=== PATIENT | female | born 1965 | race Caucasian/White ===

== ENCOUNTER 2018-06-07 12:03 | Day surgery (SDC) | payer BC ==
[2018-06-07] MEDS ORDERED: Ropivacaine 0.5% 5 MG/ML 30 ML SDV ONE (15:25)
[2018-06-07] MEDS ORDERED: Betamethasone Acetate/Betamethasone Sod Phosphate 30 MG/5 ML MDV ONE (15:25)
[2018-06-07] MEDS ORDERED: Iopamidol 408 MG/ML 50 ML SDV ONE (15:25)
--- NOTE | 2018-06-07 17:40 | OR ---
SURGEON: Jesusita Witt D.O. DATE OF PROCEDURE: 06/07/2018 OR STAFF PRESENT: 1. Ronny Roque RN. 2. Ronny Jacobo RN. 3. RT Clif. WOUND CLASSIFICATION: I. PREOPERATIVE DIAGNOSES: 1. Lumbar L3-L4, L4-L5, and L5-S1 degenerative disk disease. 2. Lumbar spondylosis. 3. Lumbar spinal stenosis. 4. Lumbar radiculopathy. POSTOPERATIVE DIAGNOSES: 1. Lumbar L3-L4, L4-L5, and L5-S1 degenerative disk disease. 2. Lumbar spondylosis. 3. Lumbar spinal stenosis. 4. Lumbar radiculopathy. PROCEDURES PERFORMED: 1. Lumbar epidural steroid injection at L3-4. 2. Fluoroscopic guidance for needle placement. 3. Local with oral Valium for sedation. SCREENING QUESTIONS: The patient answered "no" to all of the following questions: 1. Are you allergic to latex? 2. Do you have a bleeding disorder? 3. Do you have any current local or systemic infections? 4. Are you taking any anti-inflammatories or blood thinners? 5. Do you have any joint replacements, heart valve replacements, or a pacemaker? DESCRIPTION OF PROCEDURE: The patient had the procedure thoroughly explained including all possible risks, benefits and alternatives. Consent was signed in my clinic indicating understanding and willingness to proceed. The patient presented to [facility] and was escorted to the dressing room to disrobe and change into a hospital gown. Preoperative vital signs were taken and stable. The patient reported that Valium was taken prior to the procedure. The patient was brought back to the procedure room and placed in the prone position on the procedure room table. A pillow was placed under the hips in order to flatten the lumbar lordosis. The back was prepped with ChloraPrep and sterilely draped. All personnel in the operating room were dressed in appropriate attire including surgical scrubs, head and shoe covers. This was to ensure sterility while in the treatment room. During the time fluoroscopy was in use, all personnel in the operating room wore lead saleem with thyroid collars. Sterile technique was used throughout the procedure. The patient was awake and conversant throughout the procedure. There was no evidence of infection at the site of needle insertion. Skeletal landmarks were identified under fluoroscopy for the lumbar epidural. Skin was anesthetized with 2% lidocaine with a sterile 27-gauge 1.5 inch needle. Then, a 20-gauge Tuohy epidural needle was placed in the epidural space with loss of resistance technique under fluoroscopic guidance. No heme, cerebrospinal fluid, or paresthesias were noted. Isovue-200 contrast dye was injected in 0.2 cubic centimeter increments and seen to outline the epidural space in both AP and lateral views. There was no intravascular flow pattern observed under live fluoroscopy. Then, 12 milligrams of Celestone was slowly injected after negative aspiration. The patient tolerated the procedure well. Vital signs were stable during and after the procedure. The staff escorted the patient to the recovery area and the patient was released in stable condition after a brief stay in the recovery room monitored by the nurse. The patient was given both oral and written discharge and follow up instructions with recommendation to follow up given for 2-3 weeks. The patient voiced understanding including understanding of those signs and symptoms that would require emergency care. The patient knows how to contact the office if there are any additional problems or questions in the meantime. PREOPERATIVE PAIN: 8/10. POSTOPERATIVE PAIN: /10. FOLLOWUP: Follow up in the Pain Clinic in 3 weeks. JIMBO / CAITIE /[id number]
== END 2018-06-07 14:20 | disposition home or self-care (01) ==
LOC: MW.SDS 12:03
PROVIDERS: ATTEND Anesthesiology
DX: M51.16 Intervertebral disc disorders with radiculopathy, lumbar region (principal); M47.896 Other spondylosis, lumbar region; M48.061 Spinal stenosis, lumbar region without neurogenic claudication; I10 Essential (primary) hypertension; J45.909 Unspecified asthma, uncomplicated; F17.210 Nicotine dependence, cigarettes, uncomplicated; E78.1 Pure hyperglyceridemia; F41.9 Anxiety disorder, unspecified; K21.9 Gastro-esophageal reflux disease without esophagitis; Z88.0 Allergy status to penicillin; Z88.2 Allergy status to sulfonamides; Z91.030 Bee allergy status; Z91.048 Other nonmedicinal substance allergy status; Z79.899 Other long term (current) drug therapy
CPT/HCPCS: 62323; J0702; J2795; Q9966

== ENCOUNTER 2019-05-17 08:27 | Day surgery (SDC) | payer BC ==
[~2019-05-17 08:27] MED LIST: Lactated Ringers 1,000 ML IV SCH
--- NOTE | 2019-05-17 09:27 | PCM.PREANE ---
Preanesthetic Assessment - Anesthesia/Transfusion/Family Hx Anesthesia History: Prior Anesthesia Without Reaction Family History of Anesthesia Reaction: No Transfusion History: No Prior Transfusion(s) Intubation History: Unknown - Review of Systems General: No Symptoms Pulmonary: No Symptoms Cardiovascular: No Symptoms Gastrointestinal: Abdominal Pain (pelvic pain) Neurological: No Symptoms Other: Reports: None - Physical Assessment Height: 5 ft 4 in Weight: 63.503 kg ASA Class: 2 Mental Status: Alert & Oriented x3 Airway Class: Mallampati = 2 Dentition: Reports: Normal Dentition (multiple veneers upper front teeth) Thyro-Mental Finger Breadths: 3 Mouth Opening Finger Breadths: 3 ROM/Head Extension: Full Lungs: Clear to Auscultation, Normal Respiratory Effort Cardiovascular: Regular Rate, Regular Rhythm - Lab Values: Laboratory Last Values WBC 7.55 K/uL (4.0-11.0) 05/17/19 08:52 RBC 4.40 M/uL (4.30-5.90) 05/17/19 08:52 Hgb 14.1 g/dL (12.0-16.0) 05/17/19 08:52 Hct 42.6 % (36.0-46.0) 05/17/19 08:52 MCV 96.8 fL (80.0-98.0) 05/17/19 08:52 MCH 32.0 pg (27.0-32.0) 05/17/19 08:52 MCHC 33.1 g/dL (31.0-37.0) 05/17/19 08:52 RDW Std Deviation 49.7 fl (28.0-62.0) 05/17/19 08:52 RDW Coeff of Joselin 14 % (11.0-15.0) 05/17/19 08:52 Plt Count 323 K/uL (150-400) 05/17/19 08:52 MPV 9.00 fL (7.40-12.00) 05/17/19 08:52 Nucleated RBC % 0.0 /100WBC 05/17/19 08:52 Nucleated RBCs # 0 K/uL 05/17/19 08:52 HCG, Qual NEGATIVE (NEG) 05/17/19 08:52 - Allergies Allergies/Adverse Reactions: Allergies Allergy/AdvReac Type Severity Reaction Status Date / Time adhesive Allergy Rash Verified 05/15/19 09:44 penicillin Allergy Hives Verified 05/15/19 09:44 Sulfa (Sulfonamide Allergy Rash Verified 05/15/19 09:44 Antibiotics) - Blood Blood Available: No - Anesthesia Plan Pre-Op Medication Ordered: None - Acknowledgements Anesthesia Type Planned: General Anesthesia Pt an Appropriate Candidate for the Planned Anesthesia: Yes Alternatives and Risks of Anesthesia Discussed w Pt/Guardian: Yes Pt/Guardian Understands and Agrees with Anesthesia Plan: Yes PreAnesthesia Questionnaire HEENT History: Reports: Cataract Cardiovascular History: Reports: Hypertension Respiratory History: Reports: Asthma Other Respiratory History: says asthma is allergy related- has not used her inhaler since last winter Gastrointestinal History: Reports: GERD, Hiatal Hernia, Irritable Bowel Syndrome Musculoskeletal History: Reports: Arthritis, Fracture Other Musculoskeletal History: hx of fx toe and clavicle Neurological History: Reports: Concussion, Other (See Below) Other Neuro History: hx of motion sickenss Oncologic (Cancer) History: Reports: Basal Cell Carcinoma, Squamous Cell Carcinoma Other Oncologic History: removed from face and left leg Dermatologic History: Reports: Eczema - Infectious Disease History Infectious Disease History: Reports: Chicken Pox Other Infectious Disease History: childhood - Past Surgical History Head Surgeries/Procedures: Reports: None HEENT Surgical History: Reports: Cataract Surgery Female Surgical History: Reports: Breast Implant, Tubal Ligation - SUBSTANCE USE Smoking Status *Q: Current Every Day Smoker (1 ppd) Tobacco Use Within Last Twelve Months: Cigarettes Days Per Week of Alcohol Use: 7 Number of Drinks Per Day: 2 Total Drinks Per Week: 14 Recreational Drug Use History: No - HOME MEDS Home Medications: Home Meds Gemfibrozil 600 mg PO DAILY 04/27/15 [History] Omeprazole [priLOSEC OTC] 20 mg PO QAM 04/27/15 [History] Albuterol [Ventolin HFA] 8 gm INH BID PRN 10/21/15 [History] Aspirin [Adult Low Dose Aspirin EC] 81 mg PO DAILY 05/15/19 [History] Biotin 1 mg PO DAILY 05/15/19 [History] Cinnamon Bark [Cinnamon] 500 mg PO DAILY 05/15/19 [History] Fish Oil/DHA/EPA [Fish Oil 1,200 MG] 1,200 mg PO TID 05/15/19 [History] Melatonin 10 mg PO BEDTIME 05/15/19 [History] Multivitamin [Daily Multiple Vitamin] 1 tab PO DAILY 05/15/19 [History] Sleepaide 1 - 2 tab PO BEDTIME 05/15/19 [History] Tumeric 500 mg PO DAILY 05/15/19 [History] hydroCHLOROthiazide [Hydrochlorothiazide] 25 mg PO DAILY 05/15/19 [History] - CURRENT (IN HOUSE) MEDS Current Meds: Current Medications Lactated Ringer's (Ringers, Lactated) 1,000 mls @ 125 mls/hr IV ASDIRECTED [facility] Last Admin: 05/17/19 09:13 Dose: 125 mls/hr
[2019-05-17] MEDS ORDERED: Rocuronium 100 MG/10 ML Syringe ONE (09:34)
[2019-05-17] MEDS ORDERED: Lidocaine 2% 5 ML SDV ONE (09:34)
[2019-05-17] MEDS ORDERED: Propofol 200 MG/20 ML SDV ONE (09:34)
[2019-05-17] MEDS ORDERED: Midazolam 1 MG/ML 2 ML SDV ONE (09:34)
[2019-05-17] MEDS ORDERED: fentaNYL 250 MCG/5 ML SDV ONE (09:34)
[2019-05-17] MEDS ORDERED: Sodium Chloride 0.9% 2.5 ML Syringe FLUSH PRN (09:43)
[2019-05-17] MEDS ORDERED: Sodium Chloride 0.9% 10 ML Syringe FLUSH PRN (09:43)
[2019-05-17] MEDS ORDERED: Sodium Chloride 0.9% 10 ML SDV IV PRN (09:43)
[2019-05-17] MEDS ORDERED: Bupivacaine 0.25% 10 ML SDV ONE (10:31)
[2019-05-17] MEDS ORDERED: Dexamethasone 4 MG/ML 5 ML MDV ONE (11:44)
[2019-05-17] MEDS ORDERED: Ondansetron 4 MG/2 ML SDV ONE (11:44)
[2019-05-17] MEDS ORDERED: Ketorolac 30 MG/ML SDV ONE (11:44)
[2019-05-17] MEDS ORDERED: Glycopyrrolate 0.2 MG/ML SDV ONE (11:55)
[2019-05-17] MEDS ORDERED: Neostigmine Methylsulfate 1 MG/ML 5 ML Syringe ONE (11:55)
[2019-05-17] MEDS ORDERED: 50% Dextrose in Water 50 ML Syringe IVPUSH PRN (12:05)
[2019-05-17] MEDS ORDERED: Naloxone 0.4 MG/ML Syringe IVPUSH PRN (12:05)
[2019-05-17] MEDS ORDERED: Atropine 0.1 MG/ML 10 ML Syringe IVPUSH PRN ×2 (12:05)
[2019-05-17] MEDS ORDERED: Albuterol 0.083% 2.5 MG/3 ML Neb Soln NEB PRN (12:05)
[2019-05-17] MEDS ORDERED: EPINEPHrine 1:10,000 1 MG/10 ML Syringe IVPUSH PRN (12:05)
--- NOTE | 2019-05-17 12:30 | PCM.OPNOTE ---
- General Post-Op/Procedure Note Date of Surgery/Procedure: 05/17/19 Operative Procedure(s): Hysteroscopy Dilatation and Curettage. Laparoscopic Right salphingoophorectomy and Myomectomy Findings: EUA showed small atrophic uterus , normal cervix noted Hysteroscopy showed normal atrophic endometrium , Bilateral ostia visualized Laparoscopy showed Normal uterus , normal right and left ovary ,, right round ligament fibroid 3cm - pedunculated Right salphingoopherectomy done and myomectomy done Pre Op Diagnosis: Postmenopausal bleeding. Right ovarian dermoid cyst Post-Op Diagnosis: Postmenopausal bleeding. Right round ligament pedunculated fibroid Anesthesia Technique: General ET Tube Primary Surgeon: Arthur Davis Pathology: Right tube and ovary Fibroid Fluid Replacement, Intraop: 1,500 Output, Urine Amount: 50 EBL in mLs: 5 Complications: None Condition: Good Free Text/Narrative:: Intake & Output 05/16/19 05/17/19 05/17/19 22:59 06:59 14:59 Output Total 50 Balance -50
[2019-05-17] MEDS: fentaNYL 100 MCG/2 ML SDV IVPUSH PRN ×2 (12:42→12:52)
--- NOTE | 2019-05-17 13:11 | PCM.POSTAN ---
POST ANESTHESIA ASSESSMENT - MENTAL STATUS Mental Status: Alert, Oriented - VITAL SIGNS Vital Signs: Last Vital Signs Temp 36.1 C 05/17/19 09:20 Pulse 81 05/17/19 13:05 Resp 12 05/17/19 13:05 BP 147/75 H 05/17/19 13:05 Pulse Ox 92 L 05/17/19 13:05 - RESPIRATORY Respiratory Status: Respiratory Rate WNL, Airway Patent, O2 Saturation Stable - CARDIOVASCULAR CV Status: Pulse Rate WNL, Blood Pressure Stable - GASTROINTESTINAL GI Status: No Symptoms - PAIN Pain Score: 2 - POST OP HYDRATION Hydration Status: Adequate & Stable - OBSERVATIONS Free Text/Narrative:: no anesthesia problems
[2019-05-17] MEDS ORDERED: Acetaminophen/oxyCODONE 325-5 MG Tab PO ONE (13:38)
--- NOTE | 2019-05-17 13:43 | PCM48HPAN ---
Post Anesthesia Note - EVALUATION WITHIN 48HRS OF ANESTHETIC Vital Signs in Normal Range: Yes Patient Participated in Evaluation: Yes Respiratory Function Stable: Yes Airway Patent: Yes Cardiovascular Function Stable: Yes Hydration Status Stable: Yes Pain Control Satisfactory: Yes Nausea and Vomiting Control Satisfactory: Yes Mental Status Recovered: Yes Vital Signs: Last Vital Signs Temp 36.1 C 05/17/19 09:20 Pulse 81 05/17/19 13:05 Resp 12 05/17/19 13:05 BP 147/75 H 05/17/19 13:05 Pulse Ox 92 L 05/17/19 13:05 - COMMENTS/OBSERVATIONS Free Text/Narrative:: no anesthesia problems
[2019-05-17 14:52] VITALS: BP 126/72
--- NOTE | 2019-05-18 11:03 | OR ---
SURGEON: MARLY MYERS DATE OF PROCEDURE: 05/17/2019 PREOPERATIVE DIAGNOSES: 1. Postmenopausal bleeding. 2. Right ovarian cyst. POSTOPERATIVE DIAGNOSES: 1. Postmenopausal bleeding. 2. Right ovarian cyst. PROCEDURE: Laparoscopic right salpingo-oophorectomy D and C hysteroscopy, Removal of round ligament pedunculated fibroid . ESTIMATED BLOOD LOSS: 50. IV FLUIDS: 1500. ANESTHESIA: General. NOTES AND FINDINGS: Examination under anesthesia showed normal-sized anteverted uterus. Then, hysteroscopy showed atrophic endometrium with no endometrial lesions. Laparoscopy showed normal appearing ovaries and tubes. There was a 3 cm lesion on the right round ligament. DESCRIPTION OF PROCEDURE: The patient was taken to the operating room where general anesthesia was performed without difficulty. She was prepared and draped in the dorsal lithotomy position with an Lester stirrups. The speculum was used to expose the cervix. The uterus was dilated to accommodate a 5 mm hysteroscope. The hysteroscope showed normal atrophic postmenopausal endometrium with no lesions. Then attention was paid to the abdomen where a subumbilical incision 5 mm was made. Direct entry was done, which was confirmed by low CO2 pressure. CO2 gas was insufflated to 15 mmHg. The patient was then placed in Trendelenburg position. The right and left lower quadrant incision were made 2 fingerbreadths medial and superior to the anterior superior iliac spine. A trocar was then placed under direct visualization. The above-noted finding was noted. Then, the right tube and ovary was detached from supporting ligaments with the aid of LigaSure device all the way to the cornua. Then, the small lesion on the round ligament was also removed with the aid of the LigaSure device. The umbilical port was then changed to a 10 mm port. The lesion was then removed.. Intraabdominal pressure was reduced to 5 mmHg. Hemostasis was noted. Then, the ports were removed under direct visualization. The umbilical port fascia was closed with 0 vicryl and then the skin incision was closed with 3- 0 Monocryl. All instrument and pad counts were correct x2. NASEEM / CAITIE /[id number]
== END 2019-05-17 14:34 | disposition home or self-care (01) ==
LOC: MW.SDS 08:27
PROVIDERS: ATTEND Obstetrics & Gynecology
DX: D25.9 Leiomyoma of uterus, unspecified (principal); N83.291 Other ovarian cyst, right side; N70.11 Chronic salpingitis; I10 Essential (primary) hypertension; J45.909 Unspecified asthma, uncomplicated; K21.9 Gastro-esophageal reflux disease without esophagitis; F17.210 Nicotine dependence, cigarettes, uncomplicated; Z88.0 Allergy status to penicillin; Z88.2 Allergy status to sulfonamides; Z91.048 Other nonmedicinal substance allergy status; Z79.82 Long term (current) use of aspirin; Z79.899 Other long term (current) drug therapy
CPT/HCPCS: 36415; 58558; 58661; 58662; 84703; 85027; A9270; J1100; J1885; J2001; J2250; J2405; J2704; J3010; J3490; J7120; 00952

== ENCOUNTER 2020-08-04 09:15 | Day surgery (SDC) | payer BC ==
[~2020-08-04 09:15] MED LIST changes: +Midazolam 1 MG/ML 2 ML SDV ONE; +Propofol 200 MG/20 ML SDV ONE; +Sodium Chloride 0.9% 10 ML SDV IV PRN; +Sodium Chloride 0.9% 10 ML Syringe FLUSH PRN; +Sodium Chloride 0.9% 2.5 ML Syringe FLUSH PRN; +fentaNYL 100 MCG/2 ML SDV ONE
[2020-08-04] MEDS ORDERED: Lidocaine 2% 5 ML SDV ONE (09:19)
--- NOTE | 2020-08-04 09:58 | PCM.PREANE ---
Preanesthetic Assessment - Anesthesia/Transfusion/Family Hx Anesthesia History: Prior Anesthesia Without Reaction Other Type of Anesthesia Reaction Comment: "woke up during my breast augmentation" Family History of Anesthesia Reaction: No Transfusion History: No Prior Transfusion(s) Intubation History: Unknown - Review of Systems General: No Symptoms Pulmonary: No Symptoms Cardiovascular: No Symptoms Gastrointestinal: No Symptoms Neurological: No Symptoms Other: Reports: None - Physical Assessment Height: 5 ft 4 in Weight: 61.235 kg ASA Class: 2 Mental Status: Alert & Oriented x3 Airway Class: Mallampati = 2 Dentition: Reports: Normal Dentition Thyro-Mental Finger Breadths: 3 Mouth Opening Finger Breadths: 3 ROM/Head Extension: Full Lungs: Clear to Auscultation, Normal Respiratory Effort Cardiovascular: Regular Rate, Regular Rhythm - Allergies Allergies/Adverse Reactions: Allergies Allergy/AdvReac Type Severity Reaction Status Date / Time adhesive Allergy Rash Verified 05/15/19 09:44 animal dander Allergy Shortness Verified 07/29/20 09:20 of Breath bee venom protein (honey bee) Allergy Swelling Verified 07/29/20 09:20 penicillin Allergy Hives Verified 05/15/19 09:44 Sulfa (Sulfonamide Allergy Rash Verified 05/15/19 09:44 Antibiotics) - Blood Blood Available: No - Anesthesia Plan Pre-Op Medication Ordered: None - Acknowledgements Anesthesia Type Planned: MAC Pt an Appropriate Candidate for the Planned Anesthesia: Yes Alternatives and Risks of Anesthesia Discussed w Pt/Guardian: Yes Pt/Guardian Understands and Agrees with Anesthesia Plan: Yes PreAnesthesia Questionnaire HEENT History: Reports: None Cardiovascular History: Reports: High Cholesterol, Hypertension Respiratory History: Reports: Asthma (mild) Other Respiratory History: enviromental asthma Gastrointestinal History: Reports: GERD, Hiatal Hernia, Irritable Bowel Syndrome Genitourinary History: Reports: None [employer] History: Reports: Musculoskeletal History: Reports: Arthritis, Back Pain, Chronic, Fracture Other Musculoskeletal History: hx of fx toe and clavicle, scoliosis, DDD Neurological History: Reports: Concussion, Other (See Below) Other Neuro History: hx of motion sickenss Psychiatric History: Reports: Anxiety, Other (See Below) Other Psychiatric History: seasonal depression Endocrine/Metabolic History: Reports: None Hematologic History: Reports: None Immunologic History: Reports: None Oncologic (Cancer) History: Reports: Basal Cell Carcinoma Other Oncologic History: removed from face and left leg Dermatologic History: Reports: Eczema - Infectious Disease History Infectious Disease History: Reports: None Other Infectious Disease History: childhood - Past Surgical History Head Surgeries/Procedures: Reports: None HEENT Surgical History: Reports: Cataract Surgery Cardiovascular Surgical History: Reports: None Respiratory Surgical History: Reports: None GI Surgical History: Reports: None Female Surgical History: Reports: Breast Implant, Tubal Ligation, Other (See Below) Other Female Surgeries/Procedures: laparoscopy Endocrine Surgical History: Reports: None Neurological Surgical History: Reports: None Musculoskeletal Surgical History: Reports: None Oncologic Surgical History: Reports: None Dermatological Surgical History: Reports: Skin Biopsy - SUBSTANCE USE Tobacco Use Status *Q: Current Every Day Tobacco User (1 ppd) Tobacco Use Within Last Twelve Months: Cigarettes Days Per Week of Alcohol Use: 7 Number of Drinks Per Day: 2 Total Drinks Per Week: 14 - HOME MEDS Home Medications: Home Meds Gemfibrozil 600 mg PO BID 04/27/15 [History] Omeprazole [priLOSEC OTC] 20 mg PO QAM 04/27/15 [History] Albuterol [Ventolin HFA] 8 gm INH BID PRN 10/21/15 [History] Aspirin [Adult Low Dose Aspirin EC] 81 mg PO DAILY 05/15/19 [History] Cinnamon Bark [Cinnamon] 500 mg PO DAILY 05/15/19 [History] Multivitamin [Daily Multiple Vitamin] 1 tab PO DAILY 05/15/19 [History] Biotin 5,000 mcg PO DAILY 07/29/20 [History] Naproxen Sodium [Aleve] 1 tab PO ASDIRECTED PRN 07/29/20 [History] [place]-3/DHA/Epa/Fish Oil [[place] 3 500 Softgel] 1 tab PO DAILY 07/29/20 [History] Triamterene/Hydrochlorothiazid [Triamterene-HCTZ 37.5-25 MG] 1 tab PO DAILY 07/29/20 [History] Turmeric Root Extract [Turmeric] 500 mg PO BID 07/29/20 [History] - CURRENT (IN HOUSE) MEDS Current Meds: Current Medications Lactated Ringer's (Ringers, Lactated) 1,000 mls @ 125 mls/hr IV ASDIRECTED ELI Sodium Chloride (Saline Flush) 10 ml FLUSH ASDIRECTED PRN PRN Reason: Keep Vein Open Sodium Chloride (Saline Flush) 2.5 ml FLUSH ASDIRECTED PRN PRN Reason: Keep Vein Open Sodium Chloride (Saline Flush) 10 ml FLUSH ASDIRECTED PRN PRN Reason: Keep Vein Open Sodium Chloride (Saline Flush) 2.5 ml FLUSH ASDIRECTED PRN PRN Reason: Keep Vein Open Sodium Chloride (Normal Saline) 10 ml IV ASDIRECTED PRN PRN Reason: IV Use Discontinued Medications Fentanyl (Sublimaze) Confirm Administered Dose 100 mcg .ROUTE .STK-MED ONE Stop: 08/04/20 07:28 Fentanyl (Sublimaze) Confirm Administered Dose 100 mcg .ROUTE .STK-MED ONE Stop: 08/04/20 09:15 Lidocaine (Xylocaine-Mpf 2%) Confirm Administered Dose 5 ml .ROUTE .STK-MED ONE Stop: 08/04/20 09:20 Lidocaine HCl (Xylocaine-Mpf 1%) Confirm Administered Dose 5 ml .ROUTE .STK-MED ONE Stop: 08/04/20 07:28 Midazolam HCl (Versed 1 Mg/Ml) Confirm Administered Dose 2 mg .ROUTE .STK-MED ONE Stop: 08/04/20 07:28 Propofol (Diprivan 20 Ml) Confirm Administered Dose 400 mg .ROUTE .STK-MED ONE Stop: 08/04/20 07:28 Propofol (Diprivan 20 Ml) Confirm Administered Dose 200 mg .ROUTE .STK-MED ONE Stop: 08/04/20 09:13
[2020-08-04] MEDS ORDERED: Midazolam 1 MG/ML 2 ML SDV ONE (10:20)
[2020-08-04] MEDS ORDERED: Propofol 200 MG/20 ML SDV ONE (10:24)
[2020-08-04 11:01] VITALS: BP 118/64; PULSE 78
--- NOTE | 2020-08-04 11:17 | PCM.POSTAN ---
POST ANESTHESIA ASSESSMENT - MENTAL STATUS Mental Status: Alert, Oriented - VITAL SIGNS Vital Signs: Last Vital Signs Temp 36.2 C 08/04/20 10:05 Pulse 78 08/04/20 11:00 Resp 15 08/04/20 11:00 BP 118/64 08/04/20 11:00 Pulse Ox 98 08/04/20 11:00 - RESPIRATORY Respiratory Status: Respiratory Rate WNL, Airway Patent, O2 Saturation Stable - CARDIOVASCULAR CV Status: Pulse Rate WNL, Blood Pressure Stable - GASTROINTESTINAL GI Status: No Symptoms - PAIN Pain Score: 0 - POST OP HYDRATION Hydration Status: Adequate & Stable - OBSERVATIONS Free Text/Narrative:: No anesthesia problems
--- NOTE | 2020-08-04 11:18 | PCM48HPAN ---
Post Anesthesia Note - EVALUATION WITHIN 48HRS OF ANESTHETIC Vital Signs in Normal Range: Yes Patient Participated in Evaluation: Yes Respiratory Function Stable: Yes Airway Patent: Yes Cardiovascular Function Stable: Yes Hydration Status Stable: Yes Pain Control Satisfactory: Yes Nausea and Vomiting Control Satisfactory: Yes Mental Status Recovered: Yes Vital Signs: Last Vital Signs Temp 36.2 C 08/04/20 10:05 Pulse 78 08/04/20 11:00 Resp 15 08/04/20 11:00 BP 118/64 08/04/20 11:00 Pulse Ox 98 08/04/20 11:00 - COMMENTS/OBSERVATIONS Free Text/Narrative:: No anesthesia problems
--- NOTE | 2020-08-04 13:12 | PCM.OPNOTE ---
- General Post-Op/Procedure Note Date of Surgery/Procedure: 08/04/20 Operative Procedure(s): Diagnostic colonoscopy with polypectomy Findings: Descending colon polyp x 1, sigmoid colon polyp x 2, hyperplastic polyps in distal sigmoid colon Pre Op Diagnosis: Positive cologuard Post-Op Diagnosis: Descending colon polyp x 1, sigmoid colon polyp x 3, hyperplastic colon polyps Anesthesia Technique: [facility] [place] Surgeon: Peg Collins Condition: Good Free Text/Narrative:: Intake & Output 08/03/20 08/04/20 08/04/20 22:59 06:59 14:59 Intake Total 900 Balance 900
--- NOTE | 2020-08-05 11:54 | OR ---
SURGEON: PEG COLLINS MD DATE OF PROCEDURE: 08/04/2020 PREOPERATIVE DIAGNOSIS: Positive Cologuard test. POSTOPERATIVE DIAGNOSES: 1. Descending colon polyp x1. 2. Sigmoid colon polyp x3. 3. Hyperplastic colon polyps. PROCEDURE PERFORMED: Diagnostic colonoscopy with polypectomy. PRIMARY SURGEON: Peg Collins MD ANESTHESIA: MAC. INSTRUMENT USED: Olympus colonoscope. EXTENT OF EXAM: To the cecum. PREPARATION: Good. LIMITATIONS: None. INDICATIONS FOR EXAMINATION: The patient is a 55-year-old female who recently had a positive Cologuard test. I explained the need for diagnostic colonoscopy with possible polypectomy. I explained the procedure, expected perioperative course, and the risks. The patient verbalized understanding and wishes to proceed. PROCEDURE IN DETAIL: The patient was brought into the endoscopy suite and placed in the left lateral decubitus position. A time-out was completed verifying the patient's name, age, date of , allergies, and procedure to be performed. Monitored anesthesia care was induced and continuous oxygen was provided via nasal cannula throughout the procedure. After adequate sedation was achieved, a digital rectal exam was performed. This exam was within normal limits. A well-lubricated colonoscope was inserted in the rectum and advanced under direct visualization to the level of the cecum. The cecum was identified by both visual and anatomic landmarks. A photograph was taken of the cecal cap as well as with the scope retroflexed within the cecum. The scope was then fully withdrawn while examining the color, texture, anatomy, and integrity of the mucosa from the cecum to the anal canal. The patient was found to have sessile polyps throughout the distal half of the colon. There was a descending colon polyp, which was removed in piecemeal fashion using cold biopsy forceps. She had three sigmoid colon polyps, which were all removed in similar fashion, and sent to pathology. In the very distal sigmoid colon, the patient had multiple hyperplastic appearing colon polyps. These were inspected under narrow band imaging and felt to be hyperplastic. The scope was then brought in the rectum and retroflexed to allow visualization of the anal canal opening. This appeared normal and a photograph was taken. The scope was then straightened out and fully withdrawn. The cecum to anus time was 20 minutes. The patient tolerated the procedure well and was transferred to the PACU in stable condition. ENDOSCOPIC DIAGNOSES: 1. Descending colon polyp x1. 2. Sigmoid colon polyp x3. 3. Hyperplastic colon polyps. RECOMMENDATIONS: Follow up in clinic in 2 weeks. NADEGE BLOOD /[id number]
== END 2020-08-04 11:45 | disposition home or self-care (01) ==
LOC: MW.SDS 09:15
PROVIDERS: ATTEND Surgery
DX: D12.5 Benign neoplasm of sigmoid colon (principal); D12.4 Benign neoplasm of descending colon; F41.9 Anxiety disorder, unspecified; J45.909 Unspecified asthma, uncomplicated; I10 Essential (primary) hypertension; E78.1 Pure hyperglyceridemia; F17.210 Nicotine dependence, cigarettes, uncomplicated; E78.00 Pure hypercholesterolemia, unspecified; K21.9 Gastro-esophageal reflux disease without esophagitis; Z88.0 Allergy status to penicillin; Z88.2 Allergy status to sulfonamides; Z91.030 Bee allergy status; Z79.82 Long term (current) use of aspirin; Z79.899 Other long term (current) drug therapy; Z98.890 Other specified postprocedural states
CPT/HCPCS: 45380; J2001; J2250; J2704; J3010; J7120; 00811; 88305